=== PATIENT | male | born 1970 | race Caucasian/White ===

== ENCOUNTER 2017-11-08 05:20 | Day surgery (SDC) | payer OTHER ==
[2017-11-08] MEDS ORDERED: RECTICARE30 GM TOP (08:28)
[2017-11-08] MEDS ORDERED: PERCOCET 5-3251 EACH PO (08:28)
== END 2017-11-08 12:35 | disposition home or self-care (01) ==
LOC: CIR.AMB 05:20
DX: K60.3 Anal fistula (principal)

== ENCOUNTER 2018-01-19 05:30 | Day surgery (SDC) | payer OTHER ==
[~2018-01-19 05:30] MED LIST: PERCOCET 5-3251 EACH PO; RECTICARE30 GM TOP
[2018-01-19] MEDS ORDERED: RECTICARE30 GM TOP (08:56)
[2018-01-19] MEDS ORDERED: PERCOCET 5-3251 EACH PO (08:56)
== END 2018-01-19 12:54 | disposition home or self-care (01) ==
LOC: CIR.AMB 05:30
DX: K60.3 Anal fistula (principal)